=== PATIENT | female | born 1990 | race Caucasian/White ===

== ENCOUNTER 2017-08-07 22:57 | Inpatient (IN) | payer BC ==
[2017-08-07] MEDS ORDERED: Sodium Chloride 0.9% 1,000 ML IV ONE (23:30)
[2017-08-07] MEDS ORDERED: Sodium Chloride 0.9% 1,000 ML ONE (23:36)
[2017-08-07 23:50] LABS: BASO % 0.6 % (0.0-2.0); EOS % 0.6 % (0.0-4.0); HEMOGLOBIN 12.9 g/dL (11.0-16.0); LYMPH # 2.1 K/uL (1.0-4.3); LYMPH % 27.5 % (20.0-40.0); MEAN CELL VOLUME 82.1 fL (81.0-99.0); MEAN CORPUSCULAR HEMOGLOBIN 28.2 pg (27.0-31.0); MEAN CORPUSCULAR HGB CONC 34.3 g/dL (33.0-37.0); MEAN PLATELET VOLUME 8.7 fL (7.2-11.7); MONO # 0.5 K/uL (0.0-0.8); MONO % 7.1 % (0.0-10.0); NEUT # 4.8 K/uL (1.8-7.0); NEUT % 64.2 % (50.0-75.0); RBC 4.57 Mil/uL (3.80-5.20); RED CELL DISTRIBUTION WIDTH 13.2 % (11.5-14.5); WHITE BLOOD COUNT 7.5 K/uL (4.8-10.8)
[2017-08-08] LABS: ALB/GLOB RATIO 1.2 (1.0-2.1); ALT/SGPT 11 U/L (9-52); AST/SGOT 16 U/L (14-36); BLOOD UREA NITROGEN 15 mg/dL (7-17); CALCIUM 8.9 mg/dl (8.6-10.4); GFR AFRICAN-AMERICAN > 60; GFR NON-AFRICAN AMERICAN > 60; LIPASE 102 U/L (23-300)
[2017-08-08 00:18] LABS: SQUAMOUS EPITHIAL 1 /hpf (0-5); URINE BACTERIA RARE (<OCC); URINE BILIRUBIN NEGATIVE (NEGATIVE); URINE BLOOD NEGATIVE (NEGATIVE); URINE CLARITY Clear (Clear); URINE COLOR Straw (YELLOW); URINE GLUCOSE (UA) NORMAL (Normal); URINE LEUKOCYTE ESTERASE NEG Leu/uL (Negative); URINE PROTEIN NEGATIVE (NEGATIVE); URINE UROBILINOGEN NORMAL mg/dL (0.2-1.0)
[2017-08-08 00:27] LABS: HCG,QUALITATIVE URINE NEGATIVE (NEGATIVE)
--- NOTE | 2017-08-08 00:34 | US ---
EXAM: US Abdomen Limited, Right Upper Quadrant CLINICAL HISTORY: 26 years old, female; Pain; Abdominal pain; Epigastric; Additional info: Ruq/epigastric pain TECHNIQUE: Real-time ultrasound of the right upper quadrant with image documentation. COMPARISON: No relevant prior studies available. FINDINGS: Liver: Enlarged, 20.0 cm. Fatty infiltration. No mass. No intrahepatic ductal dilatation. Gallbladder: Nonmobile stone within neck. Comet tail artifact along wall. No wall thickening. No pericholecystic fluid. No sonographic Goldstein's sign. Common bile duct: No dilatation. No stones. Pancreas: Unremarkable as visualized. Right kidney: Normal echogenicity. No hydronephrosis. IMPRESSION: 1. Cholelithiasis. 2. Adenomyomatosis. 3. Incidental/non-acute findings are described above.
--- NOTE | 2017-08-08 00:40 | C.PDOC ---
Time Seen by Provider: 08/07/17 23:13 Chief Complaint (Nursing): Abdominal Pain History Per: Patient Onset/Duration Of Symptoms: Days (5), Waxing/Waning Current Symptoms Are (Timing): Worse Severity: Moderate Location Of Pain/Discomfort: RUQ Quality Of Discomfort: "Pain" Exacerbating Factors: None Alleviating Factors: None Additional History Per: Prior Records Past Medical History Reviewed: Historical Data, Nursing Documentation, Vital Signs Vital Signs: Last Vital Signs Temp 97.6 F 08/07/17 23:11 Pulse 66 08/07/17 23:11 Resp 20 08/07/17 23:11 BP 117/79 08/07/17 23:11 Pulse Ox 100 08/08/17 00:40 - Medical History PMH: No Chronic Diseases Surgical History: Tonsillectomy, Family History: States: Unknown Family Hx - Social History Hx Alcohol Use: Yes Hx Substance Use: No - Immunization History Hx Tetanus Toxoid Vaccination: No Hx Influenza Vaccination: No Hx Pneumococcal Vaccination: No Review Of Systems Except As Marked, All Systems Reviewed And Found Negative. Constitutional: Negative for: Fever Cardiovascular: Negative for: Chest Pain Respiratory: Negative for: Shortness of Breath Gastrointestinal: Positive for: Abdominal Pain. Negative for: Vomiting, Diarrhea Genitourinary: Negative for: Dysuria Musculoskeletal: Negative for: Neck Pain Skin: Negative for: Rash Neurological: Negative for: Weakness, Numbness Physical Exam - Physical Exam Appears: Non-toxic, Other (Uncomfortable in pain) Skin: Normal Color, Warm, Dry, No Rash Head: Atraumatic, Normacephalic Eye(s): bilateral: Normal Inspection, PERRL, EOMI Neck: Normal ROM, Supple Cardiovascular: Rhythm Regular Respiratory: Normal Breath Sounds, No Accessory Muscle Use Gastrointestinal/Abdominal: Soft, Tenderness (RUQ) Back: No CVA Tenderness Extremity: Normal ROM Neurological/Psych: Oriented x3, Normal Motor, Normal Sensation ED Course And Treatment - Laboratory Results Result Diagrams: 08/07/17 23:45 08/07/17 23:45 Lab Interpretation: No Acute Changes Urine POC: Negative O2 Sat by Pulse Oximetry: 100 Pulse Ox Interpretation: Normal - CT Scan/US RUQ Sono Other Rad Studies (CT/US): Read By Radiologist, Radiology Report Reviewed CT/US Interpretation: IMPRESSION: 1. Cholelithiasis. 2. Adenomyomatosis. 3. Incidental/non-acute findings are described above. - Physician Consult Information Physician Contacted: Quinn Gooden (Surg.) Outcome Of Conversation: He wants pt to be admitted under Dr. Rodriguez's service and he will consult. Pt was also signed out to surgery resident Dr. Gunter. Progress - Interventions Interventions:: Observation, Intravenous fluid - Medications Administered Oral: Antiemetic Intravenous: H-2 jennifer - Data Reviewed Data Reviewed: Lab, Diagnostic imaging, Old records - Patient Status Patient status: Unchanged - Continuity of Care Discussed patient case with:: Patient, ED Nurse, On-call PMD-pt unassigned Discussed pt. case with senior wind energy consultant/specialty: General Surgery - Patient Plan Patient Plan: Admission Disposition Discussed With : Breezy Rodriguez Comment: He accepted pt on his service and gave admitting orders to the nurse. Doctor Will See Patient In The: Hospital Counseled Patient/Family Regarding: Studies Performed, Diagnosis - Disposition Disposition: HOSPITALIZED Disposition Time: 00:50 Condition: FAIR - Clinical Impression Clinical Impression: Adenomyomatosis of gallbladder, Cholelithiasis with obstruction, Gallbladder pain
[2017-08-08] MEDS ORDERED: Morphine 4 MG/ML VIAL ONE (01:10)
[2017-08-08] MEDS ORDERED: Dextrose 5%/0.9% NS 1,000 ML IV ONE (01:10)
[2017-08-08] MEDS: Dextrose 5%/0.9% NS 1,000 ML IV SCH ×2 (01:15→10:21)
[2017-08-08] MEDS: Sodium Chloride 0.9% 1,000 ML IV SCH ×3 (02:22→21:16)
--- NOTE | 2017-08-08 07:51 | CP.PCM.CON ---
<Tena Gunter - Last Filed: 08/08/17 07:47> History of Present Illness - History of Present Illness History of Present Illness: General Surgery - Dr Gooden 26yo F w/ hx of 2 years ago, presents with RUQ abdominal pain x5days. Pt states she's had the pain on and off for the past 5 days, worse at night and usually after eating dinner, however yesterday the pain began early in the day and persisted throughout the entire day becoming more severe. She describes it as stabbing pain located in the RUQ and wrapping around the side, non-radiating, 10/10 in severity. She denies any prior episodes of the pain. She admits to some mild nausea but denies any vomiting. She denies any Diarrhea , Constipation, Dysuria, Hematuria, Fevers or Chills, SOB or chest pain. PMH: Depression (stopped anti-depressant meds ~6 weeks ago) PSH: No meds Allergy: Aspirin Vitals and Labs done in ED are WNL. U/S was done which showed a large stone lodged in the neck of the GB with some wall thickening vs. adenomyomatosus. Surgery was consulted for cholecystitis. Review of Systems - Review of Systems All systems: reviewed and no additional remarkable complaints except (as per HPI ) Past Patient History - Past Medical History & Family History Past Medical History?: No - Past Social History Smoking Status: Never Smoked - MUSCULOSKELETAL/RHEUMATOLOGICAL Hx Falls: No - PSYCHIATRIC Hx Substance Use: No - SURGICAL HISTORY Hx Surgeries: Yes Hx Section: Yes Hx Tonsillectomy: Yes (2007) Other/Comment: breast reduction 2008 - ANESTHESIA Hx Anesthesia: Yes Hx Anesthesia Reactions: No Meds Allergies/Adverse Reactions: Allergies Allergy/AdvReac Type Severity Reaction Status Date / Time aspirin AdvReac NAUSEA Verified 08/07/17 23:11 - Medications Medications: Current Medications Famotidine (Pepcid) 20 mg IVP BID [facility] Last Admin: 08/08/17 01:15 Dose: 20 mg Sodium Chloride (Sodium Chloride 0.9%) 1,000 mls @ 100 mls/hr IV .Q10H [facility] Last Admin: 08/08/17 02:22 Dose: 100 mls/hr Dextrose/Sodium Chloride (Dextrose 5%/0.9% Ns 1000 Ml) 1,000 mls @ 100 mls/hr IV .Q10H [facility] Last Admin: 08/08/17 01:15 Dose: 100 mls/hr Ketorolac Tromethamine (Toradol) 30 mg IVP Q4 PRN PRN Reason: Pain, moderate (4-7) Last Admin: 08/08/17 01:39 Dose: 30 mg Pneumococcal Polyvalent Vaccine (Pneumovax 23 Vaccine) 0.5 ml IM .ONCE ONE Stop: 08/10/17 10:01 Physical Exam - Constitutional Appears: No Acute Distress - Head Exam Head Exam: ATRAUMATIC, NORMAL INSPECTION, NORMOCEPHALIC - Eye Exam Eye Exam: Normal appearance - ENT Exam ENT Exam: Mucous Membranes Moist - Respiratory Exam Respiratory Exam: NORMAL BREATHING PATTERN. absent: Respiratory Distress - Cardiovascular Exam Cardiovascular Exam: REGULAR RHYTHM - GI/Abdominal Exam GI & Abdominal Exam: Guarding, Soft, Tenderness (RUQ). absent: Distended, Firm , Rebound, Rigid - Neurological Exam Neurological exam: Alert, Oriented x3 - Psychiatric Exam Psychiatric exam: Normal Affect, Normal Mood - Skin Skin Exam: Dry, Intact Results - Vital Signs Recent Vital Signs: Last Vital Signs Temp 98.6 F 08/08/17 07:40 Pulse 76 08/08/17 07:40 Resp 20 08/08/17 07:40 BP 103/68 08/08/17 07:40 Pulse Ox 97 08/08/17 07:40 - Labs Result Diagrams: 08/07/17 23:45 08/07/17 23:45 Labs: Laboratory Results - last 24 hr 08/07/17 08/07/17 08/08/17 23:45 23:45 00:09 WBC 7.5 RBC 4.57 Hgb 12.9 Hct 37.5 MCV 82.1 MCH 28.2 MCHC 34.3 RDW 13.2 Plt Count 159 MPV 8.7 Neut % (Auto) 64.2 Lymph % (Auto) 27.5 [place] % (Auto) 7.1 Eos % (Auto) 0.6 Baso % (Auto) 0.6 Neut # (Auto) 4.8 Lymph # (Auto) 2.1 [place] # (Auto) 0.5 Eos # (Auto) 0.0 Baso # (Auto) 0.0 Sodium 140 Potassium 3.6 Chloride 103 Carbon Dioxide 26 Anion Gap 15 BUN 15 Creatinine 0.8 Est GFR ( Amer) > 60 Est GFR (Non-Af Amer) > 60 Random Glucose 88 Calcium 8.9 Total Bilirubin 0.5 AST 16 ALT 11 Alkaline Phosphatase 53 Total Protein 7.4 Albumin 4.0 Globulin 3.4 Albumin/Globulin Ratio 1.2 Lipase 102 Urine Color Straw Urine Clarity Clear Urine pH 6.0 Ur Specific [place] 1.013 Urine Protein Negative Urine Glucose (UA) Normal Urine Ketones Negative Urine Blood Negative Urine Nitrate Negative Urine Bilirubin Negative Urine Urobilinogen Normal Ur Leukocyte Esterase Neg Urine WBC (Auto) < 1 Urine RBC (Auto) 1 Ur Squamous Epith Cells 1 Urine Bacteria Rare Urine HCG, Qual Negative Assessment & Plan - Assessment and Plan (Free Text) Assessment: 26 yo F w/ early cholecystitis/cholelithiasis -Plan for OR tomorrow for Robotic Cholecystectomy -Clear liquids today, NPO after midnight tonight -Continue IVF -OOB/Ambulation Dw Dr Giacomo Gunter PGy3 <Quinn Gooden - Last Filed: 08/11/17 15:49> Results - Vital Signs Recent Vital Signs: Last Vital Signs Temp 98.8 F 08/10/17 07:44 Pulse 60 08/10/17 07:44 Resp 20 08/10/17 07:44 BP 106/60 08/10/17 07:44 Pulse Ox 97 08/10/17 07:44 - Labs Result Diagrams: 08/09/17 04:40 08/09/17 04:40 Attending/Attestation - Attestation I have personally seen and examined this patient.: Yes I have fully participated in the care of the patient.: Yes I have reviewed all pertinent clinical information: Yes Notes (Text): Pt was seen and examined at bedside Agree with above note and assessment Pt with Upper abdominal pain and tenderness Labs and radiology reviewed Ass: Cholecystitis with Cholelithiasis and leucocytosis IV antibiotics NPO, IVF OR for lap Cholecystectomy on Wednesday Consent Plan d.w pt in detail Risk and benefit explained in detail.
--- NOTE | 2017-08-08 15:10 | CP.PCM.CON ---
<Aleksandra Fine - Last Filed: 08/08/17 15:15> History of Present Illness - History of Present Illness History of Present Illness: GI Fellow PGY 4 Consult Note This is a 26yF with no significant pmhx presenting with RUQ abdominal pain for 5days. Pt states she's had the pain for the past 5 days, worse at night and after meals but worse yesterday. She describes it as stabbing pain located in the RUQ and wrapping around the side, non-radiating, 10/10 in severity. She denies any prior episodes of the pain. She admits to some mild nausea but denies any vomiting. U/S was done which showed a large stone lodged in the neck of the GB with some wall thickening. ROS: A 12pt ROS was negative except as above PMH: As stated in HPI PSH: SHX: Denies etoh, drugs or tobacco FH: denies colon cancer Past Patient History - Past Medical History & Family History Past Medical History?: No - Past Social History Smoking Status: Never Smoked - MUSCULOSKELETAL/RHEUMATOLOGICAL Hx Falls: No - PSYCHIATRIC Hx Substance Use: No - SURGICAL HISTORY Hx Surgeries: Yes Hx Section: Yes Hx Tonsillectomy: Yes (2007) Other/Comment: breast reduction 2008 - ANESTHESIA Hx Anesthesia: Yes Hx Anesthesia Reactions: No Meds Allergies/Adverse Reactions: Allergies Allergy/AdvReac Type Severity Reaction Status Date / Time aspirin AdvReac NAUSEA Verified 08/07/17 23:11 - Medications Medications: Current Medications Famotidine (Pepcid) 20 mg IVP BID [facility] Last Admin: 08/08/17 10:23 Dose: 20 mg Sodium Chloride (Sodium Chloride 0.9%) 1,000 mls @ 100 mls/hr IV .Q10H [facility] Last Admin: 08/08/17 10:23 Dose: 100 mls/hr Ketorolac Tromethamine (Toradol) 30 mg IVP Q4 PRN PRN Reason: Pain, moderate (4-7) Last Admin: 08/08/17 01:39 Dose: 30 mg Pneumococcal Polyvalent Vaccine (Pneumovax 23 Vaccine) 0.5 ml IM .ONCE ONE Stop: 08/10/17 10:01 Physical Exam - Constitutional Appears: Non-toxic, No Acute Distress - Head Exam Head Exam: ATRAUMATIC, NORMAL INSPECTION, NORMOCEPHALIC - Eye Exam Eye Exam: EOMI, Normal appearance Pupil Exam: PERRL - ENT Exam ENT Exam: Mucous Membranes Moist, Normal Exam - Neck Exam Neck exam: Positive for: Normal Inspection - Respiratory Exam Respiratory Exam: Clear to Auscultation Bilateral, NORMAL BREATHING PATTERN - Cardiovascular Exam Cardiovascular Exam: Tachycardia, REGULAR RHYTHM, +S1, +S2 - GI/Abdominal Exam GI & Abdominal Exam: Diminished Bowel Sounds, Normal Bowel Sounds, Soft, Tenderness. absent: Distended, Firm, Guarding - Rectal Exam Rectal Exam: Deferred - Extremities Exam Extremities exam: Positive for: full ROM, normal inspection - Back Exam Back exam: NORMAL INSPECTION - Neurological Exam Neurological exam: Alert, Oriented x3 - Psychiatric Exam Psychiatric exam: Normal Affect, Normal Mood - Skin Skin Exam: Dry, Intact, Normal Color, Warm Results - Vital Signs Recent Vital Signs: Last Vital Signs Temp 98.6 F 08/08/17 07:40 Pulse 76 08/08/17 07:40 Resp 20 08/08/17 07:40 BP 103/68 08/08/17 07:40 Pulse Ox 97 08/08/17 07:40 - Labs Result Diagrams: 08/07/17 23:45 08/07/17 23:45 Labs: Laboratory Results - last 24 hr 08/07/17 08/07/17 08/08/17 23:45 23:45 00:09 WBC 7.5 RBC 4.57 Hgb 12.9 Hct 37.5 MCV 82.1 MCH 28.2 MCHC 34.3 RDW 13.2 Plt Count 159 MPV 8.7 Neut % (Auto) 64.2 Lymph % (Auto) 27.5 [place] % (Auto) 7.1 Eos % (Auto) 0.6 Baso % (Auto) 0.6 Neut # (Auto) 4.8 Lymph # (Auto) 2.1 [place] # (Auto) 0.5 Eos # (Auto) 0.0 Baso # (Auto) 0.0 Sodium 140 Potassium 3.6 Chloride 103 Carbon Dioxide 26 Anion Gap 15 BUN 15 Creatinine 0.8 Est GFR ( Amer) > 60 Est GFR (Non-Af Amer) > 60 Random Glucose 88 Calcium 8.9 Total Bilirubin 0.5 AST 16 ALT 11 Alkaline Phosphatase 53 Total Protein 7.4 Albumin 4.0 Globulin 3.4 Albumin/Globulin Ratio 1.2 Lipase 102 Urine Color Straw Urine Clarity Clear Urine pH 6.0 Ur Specific [place] 1.013 Urine Protein Negative Urine Glucose (UA) Normal Urine Ketones Negative Urine Blood Negative Urine Nitrate Negative Urine Bilirubin Negative Urine Urobilinogen Normal Ur Leukocyte Esterase Neg Urine WBC (Auto) < 1 Urine RBC (Auto) 1 Ur Squamous Epith Cells 1 Urine Bacteria Rare Urine HCG, Qual Negative Assessment & Plan - Assessment and Plan (Free Text) Assessment: This is a 26yM presenting with abdominal pain. 1. Acute cholelithiasis/ cholecystitis Plan: -Continue supportive care with pain control and anti-emetics -NPO after midnight -Continue abx therapy -No GI intervention at this time, no CBD stone, LFTs wnl -Plan for OR tomorrow -Please call with any questions or concerns <Anshul Martinez - Last Filed: 08/08/17 15:32> Meds - Medications Medications: Current Medications Famotidine (Pepcid) 20 mg IVP BID [facility] Last Admin: 08/08/17 10:23 Dose: 20 mg Sodium Chloride (Sodium Chloride 0.9%) 1,000 mls @ 100 mls/hr IV .Q10H [facility] Last Admin: 08/08/17 10:23 Dose: 100 mls/hr Ketorolac Tromethamine (Toradol) 30 mg IVP Q4 PRN PRN Reason: Pain, moderate (4-7) Last Admin: 08/08/17 01:39 Dose: 30 mg Pneumococcal Polyvalent Vaccine (Pneumovax 23 Vaccine) 0.5 ml IM .ONCE ONE Stop: 08/10/17 10:01 Results - Vital Signs Recent Vital Signs: Last Vital Signs Temp 98.6 F 08/08/17 07:40 Pulse 76 08/08/17 07:40 Resp 20 08/08/17 07:40 BP 103/68 08/08/17 07:40 Pulse Ox 97 08/08/17 07:40 - Labs Result Diagrams: 08/07/17 23:45 08/07/17 23:45 Labs: Laboratory Results - last 24 hr 08/07/17 08/07/17 08/08/17 23:45 23:45 00:09 WBC 7.5 RBC 4.57 Hgb 12.9 Hct 37.5 MCV 82.1 MCH 28.2 MCHC 34.3 RDW 13.2 Plt Count 159 MPV 8.7 Neut % (Auto) 64.2 Lymph % (Auto) 27.5 [place] % (Auto) 7.1 Eos % (Auto) 0.6 Baso % (Auto) 0.6 Neut # (Auto) 4.8 Lymph # (Auto) 2.1 [place] # (Auto) 0.5 Eos # (Auto) 0.0 Baso # (Auto) 0.0 Sodium 140 Potassium 3.6 Chloride 103 Carbon Dioxide 26 Anion Gap 15 BUN 15 Creatinine 0.8 Est GFR ( Amer) > 60 Est GFR (Non-Af Amer) > 60 Random Glucose 88 Calcium 8.9 Total Bilirubin 0.5 AST 16 ALT 11 Alkaline Phosphatase 53 Total Protein 7.4 Albumin 4.0 Globulin 3.4 Albumin/Globulin Ratio 1.2 Lipase 102 Urine Color Straw Urine Clarity Clear Urine pH 6.0 Ur Specific [place] 1.013 Urine Protein Negative Urine Glucose (UA) Normal Urine Ketones Negative Urine Blood Negative Urine Nitrate Negative Urine Bilirubin Negative Urine Urobilinogen Normal Ur Leukocyte Esterase Neg Urine WBC (Auto) < 1 Urine RBC (Auto) 1 Ur Squamous Epith Cells 1 Urine Bacteria Rare Urine HCG, Qual Negative Attending/Attestation - Attestation I have personally seen and examined this patient.: Yes I have fully participated in the care of the patient.: Yes I have reviewed all pertinent clinical information: Yes Notes (Text): 08/08/17 15:26 This is a 26 year old M presenting with abdominal pain in setting of acute cholelithiasis/ cholecystitis for OR in am. No choledocholithiasis hence no GI intervention needed. Rest of plan as per surgical service. Please call with any questions or concerns
--- NOTE | 2017-08-08 19:14 | RAD ---
PROCEDURE: CHEST RADIOGRAPH, 1 VIEW HISTORY: preop COMPARISON: None available. FINDINGS: LUNGS: Clear. PLEURA: No pneumothorax or pleural fluid seen. CARDIOVASCULAR: Normal. OSSEOUS STRUCTURES: No significant abnormalities. VISUALIZED UPPER ABDOMEN: Normal. OTHER FINDINGS: None. IMPRESSION: No active disease.
--- NOTE | 2017-08-08 22:21 | CP.PCM.HP ---
History of Present Illness - History of Present Illness History of Present Illness: CC: RUQ abdominal pain HPI: This is a 26yF with no significant pmhx presenting with RUQ abdominal pain for 5days. Pt states she's had the pain for the past 5 days, worse at night and after meals but worse yesterday. She describes it as stabbing pain located in the RUQ and wrapping around the side, radiating to back, 10/10 in severity. She denies any prior episodes of the pain. She admits to some mild nausea but denies any vomiting. U/S was done which showed a large stone lodged in the neck of the GB with some wall thickening. ROS: A 12pt ROS was negative except as above PMH: As stated in HPI PSH: SHX: Denies etoh, drugs or tobacco FH: denies colon cancer Present on Admission - Present on Admission Any Indicators Present on Admission: Yes Review of Systems - Review of Systems Systems not reviewed;Unavailable: Acuity of Condition - Constitutional Constitutional: Fatigue. absent: As Per HPI, Anorexia, Chills, Daytime Sleepiness, Excessive Sweating, Fever, Frequent Falls, Headache, Increased Appetite, Lethargy, Malaise, Night Sweats, Snoring, Sleep Apnea, Weight Gain, Weight Loss, Weakness, Other - EENT Eyes: absent: As Per HPI, Blind Spots, Blurred Vision, Change in Vision, Decreased Night Vision, Diplopia, Discharge, Dry Eye, Exophthalmos, Floaters, Irritation, Itchy Eyes, Loss of Peripheral Vision, Pain, Photophobia, Requires Corrective Lenses, Sees Flashes, Spots in Vision, Tunnel Vision, Other Visual Disturbances, Loss of Vision, Other Nose/Mouth/Throat: absent: As Per HPI, Epistaxis, Nasal Congestion, Nasal Discharge, Nasal Obstruction, Nasal Trauma, Nose Pain, Post Nasal Drip, Sinus Pain, Sinus Pressure, Bleeding Gums, Change in Voice, Dental Pain, Dry Mouth, Dysphagia, Halitosis, Hoarsness, Lip Swelling, Mouth Lesions, Mouth Pain, Odynophagia, Sore Throat, Throat Swelling, Tongue Swelling, Facial Pain, Neck Pain, Neck Mass, Other - Cardiovascular Cardiovascular: absent: As Per HPI, Acrocyanosis, Chest Pain, Chest Pain at Rest , Chest Pain with Activity, Claudication, Diaphoresis, Dyspnea, Dyspnea on Exertion, Edema, Irregular Heart Rhythm, Pain Radiating to Arm/Neck/Jaw, Leg Edema, Leg Ulcers, Lightheadedness, Orthopnea, Palpitations, Paroxysmal Nocturnal Dyspnea, Pedal Edema, Radiating Pain, Rapid Heart Rate, Slow Heart Rate, Syncope, Other - Gastrointestinal Gastrointestinal: Abdominal Pain, Dyspepsia, Nausea - Genitourinary Genitourinary: absent: As Per HPI, Change in Urinary Stream, Difficulty Urinating, Dysuria, Flank Pain, Hematuria, Pyuria, Nocturia, Urinary Incontinence, Urinary Frequency, Urinary Hesitance, Urinary Urgency, Voiding Freq/Small Amts, Freq UTI, Hx Renal/Bladder Calculi, Hx /Renal Surgery, Bladder Distension, Other - Musculoskeletal Musculoskeletal: Back Pain. absent: As Per HPI, Abnormal Gait, Arthralgias, Atrophy, Deformity, Joint Swelling, Limited Range of Motion, Loss of Height, Muscle Cramps, Muscle Weakness, Myalgias, Neck Pain, Numbness, Radiating Pain into Limb, Stiffness, Tingling, Other - Integumentary Integumentary: absent: As Per HPI, Acne, Alopecia, Bleeding Lesions, Change in Hair, Change in Nails, Change in Pigmentation, Changing Lesions, Dry Skin, Erythema, Furuncle, Hirsutism, Lesions, New Lesions, Non-Healing Lesions, Photosensitivity, Pruritus, Rash, Skin Pain, Skin Ulcer, Sores, Striae, Swelling , Unusual Bruising, Wounds, Jaundice, Other Past Patient History - Past Medical History & Family History Past Medical History?: No - Past Social History Smoking Status: Never Smoked - MUSCULOSKELETAL/RHEUMATOLOGICAL Hx Falls: No - PSYCHIATRIC Hx Substance Use: No - SURGICAL HISTORY Hx Surgeries: Yes Hx Section: Yes Hx Tonsillectomy: Yes (2007) Other/Comment: breast reduction 2009 - ANESTHESIA Hx Anesthesia: Yes Hx Anesthesia Reactions: No Meds Allergies/Adverse Reactions: Allergies Allergy/AdvReac Type Severity Reaction Status Date / Time aspirin AdvReac NAUSEA Verified 08/07/17 23:11 Physical Exam - Constitutional Appears: No Acute Distress - Head Exam Head Exam: ATRAUMATIC, NORMAL INSPECTION, NORMOCEPHALIC - Eye Exam Eye Exam: EOMI, Normal appearance, PERRL Pupil Exam: NORMAL ACCOMODATION, PERRL - Respiratory Exam Respiratory Exam: Clear to Auscultation Bilateral, NORMAL BREATHING PATTERN - Cardiovascular Exam Cardiovascular Exam: REGULAR RHYTHM, +S1, +S2 - GI/Abdominal Exam GI & Abdominal Exam: Normal Bowel Sounds, Tenderness. absent: Bruit, Diminished Bowel Sounds, Distended, Firm, Guarding, Hernia, Hyperactive Bowel Sounds, Hypoactive Bowel Sounds, Mass, Organomegaly, Pulsatile Mass, Rebound, Rigid, Soft Additional comments: RUQ tenderness - Rectal Exam Rectal Exam: Deferred Results - Vital Signs Recent Vital Signs: Last Vital Signs Temp 98.3 F 08/08/17 15:00 Pulse 61 08/08/17 15:00 Resp 20 08/08/17 15:00 BP 100/63 08/08/17 15:00 Pulse Ox 98 08/08/17 15:00 - Labs Result Diagrams: 08/07/17 23:45 08/07/17 23:45 Labs: Laboratory Results - last 24 hr 08/07/17 08/07/17 08/08/17 23:45 23:45 00:09 WBC 7.5 RBC 4.57 Hgb 12.9 Hct 37.5 MCV 82.1 MCH 28.2 MCHC 34.3 RDW 13.2 Plt Count 159 MPV 8.7 Neut % (Auto) 64.2 Lymph % (Auto) 27.5 [place] % (Auto) 7.1 Eos % (Auto) 0.6 Baso % (Auto) 0.6 Neut # (Auto) 4.8 Lymph # (Auto) 2.1 [place] # (Auto) 0.5 Eos # (Auto) 0.0 Baso # (Auto) 0.0 Sodium 140 Potassium 3.6 Chloride 103 Carbon Dioxide 26 Anion Gap 15 BUN 15 Creatinine 0.8 Est GFR ( Amer) > 60 Est GFR (Non-Af Amer) > 60 Random Glucose 88 Calcium 8.9 Total Bilirubin 0.5 AST 16 ALT 11 Alkaline Phosphatase 53 Total Protein 7.4 Albumin 4.0 Globulin 3.4 Albumin/Globulin Ratio 1.2 Lipase 102 Urine Color Straw Urine Clarity Clear Urine pH 6.0 Ur Specific [place] 1.013 Urine Protein Negative Urine Glucose (UA) Normal Urine Ketones Negative Urine Blood Negative Urine Nitrate Negative Urine Bilirubin Negative Urine Urobilinogen Normal Ur Leukocyte Esterase Neg Urine WBC (Auto) < 1 Urine RBC (Auto) 1 Ur Squamous Epith Cells 1 Urine Bacteria Rare Urine HCG, Qual Negative Assessment & Plan (1) RUQ abdominal pain Status: Acute (2) Cholelithiasis with obstruction Status: Acute
[2017-08-09] MEDS: Sodium Chloride 0.9% 1,000 ML IV SCH ×2 (00:11→10:50)
[2017-08-09 04:46] LABS: BASO % 0.5 % (0.0-2.0); EOS # 0.1 K/uL (0.0-0.7); EOS % 0.9 % (0.0-4.0); HEMOGLOBIN 11.8 g/dL (11.0-16.0); LYMPH # 2.3 K/uL (1.0-4.3); MEAN CELL VOLUME 82.4 fL (81.0-99.0); MEAN CORPUSCULAR HEMOGLOBIN 28.1 pg (27.0-31.0); MEAN CORPUSCULAR HGB CONC 34.1 g/dL (33.0-37.0); MEAN PLATELET VOLUME 8.8 fL (7.2-11.7); MONO # 0.4 K/uL (0.0-0.8); MONO % 6.4 % (0.0-10.0); NEUT # 3.8 K/uL (1.8-7.0); NEUT % 57.2 % (50.0-75.0); RBC 4.2 Mil/uL (3.80-5.20); RED CELL DISTRIBUTION WIDTH 13.1 % (11.5-14.5); WHITE BLOOD COUNT 6.6 K/uL (4.8-10.8)
[2017-08-09 04:54] LABS: INR 1.3
[2017-08-09 05:01] LABS: ALB/GLOB RATIO 1.1 (1.0-2.1); ALBUMIN 3.1 g/dL (3.5-5.0); ALT/SGPT 14 U/L (9-52); AST/SGOT 17 U/L (14-36); BLOOD UREA NITROGEN 5 mg/dL (7-17); CALCIUM 7.7 mg/dl (8.6-10.4); GFR AFRICAN-AMERICAN > 60; GFR NON-AFRICAN AMERICAN > 60
[2017-08-09] MEDS: Bupivacaine HCl 0.25% PF (30 ml) Inj ONE ×2 (13:03→13:33)
[2017-08-09] MEDS: Lidocaine/Epinephrine 1% 1:100000 10 ML IJ ONE ×2 (13:04→13:33)
[2017-08-09] MEDS: ceFAZolin 1 gm in NS 2 GM/200 ML BAG IVPB ONE ×2 (13:04→13:20)
[2017-08-09] MEDS ORDERED: Propofol 10 mg/ml Inj (20 ML) ONE (13:06)
[2017-08-09] MEDS ORDERED: Midazolam 2 MG/2 ML VIAL ONE (13:06)
[2017-08-09] MEDS ORDERED: HYDROmorphone 0.5 mg/0.5 ml ISec IVP PRN (14:22)
--- NOTE | 2017-08-09 14:52 | PCM.SURG1 ---
Surgeon's Initial Post Op Note - Surgeon's Notes Surgeon: Dr. Gooden [employer] Cle[employer] Porter: LIDIA Seth; Meaghan Lindsey, PGY2 Pre-Operative Diagnosis: Acute cholecystitis, cholelithiasis Operative Findings: distended gallbladder, normal ductal and arterial anatomy, hemostasis obtained Post-Operative Diagnosis: same Operation Performed: robotic assisted laparoscopic cholecystectomy Specimen/Specimens Removed: gall bladder Estimated Blood Loss: EBL {In ML}: 10 Date of Surgery/Procedure: 08/09/17 Time of Surgery/Procedure: 13:30
[2017-08-09 16:50] VITALS: RESP 20
[2017-08-09] MEDS: Oxycodone/Acetaminophen 5/325 mg Tab PO PRN (17:21)
[2017-08-09] MEDS: Docusate-Senna 50 mg-8.6 mg Tab PO SCH (18:30)
[2017-08-09 23:26] VITALS: PULSE 60
--- NOTE | 2017-08-09 23:40 | CP.PCM.PN ---
Subjective - Date & Time of Evaluation Date of Evaluation: 08/09/17 Time of Evaluation: 18:45 - Subjective Subjective: Pt is seen and examined, s/p robotic cholecystectomy, has some pain, post op care, diet Objective - Vital Signs/Intake and Output Vital Signs (last 24 hours): Temp Pulse Resp BP Pulse Ox 98 F 60 20 100/63 98 08/09/17 23:22 08/09/17 23:22 08/09/17 23:22 08/09/17 23:22 08/09/17 23:22 Intake and Output: 08/09/17 08/10/17 18:59 06:59 Intake Total 1500 480 Balance 1500 480 - Medications Medications: Current Medications Enoxaparin Sodium (Lovenox) 40 mg SC DAILY [facility] Famotidine (Pepcid) 20 mg IVP BID [facility] Last Admin: 08/09/17 17:22 Dose: 20 mg Ondansetron HCl (Zofran Inj) 4 mg IVP Q6H PRN PRN Reason: Nausea/Vomiting Oxycodone/Acetaminophen (Percocet 5/325 Mg Tab) 1 tab PO Q6H PRN PRN Reason: Pain, moderate (4-7) Stop: 08/12/17 14:54 Last Admin: 08/09/17 17:21 Dose: 1 tab Pneumococcal Polyvalent Vaccine (Pneumovax 23 Vaccine) 0.5 ml IM .ONCE ONE Stop: 08/10/17 10:01 Senna/Docusate Sodium (Senokot S 50 Mg-8.6 Mg) 1 tab PO BID [facility] Last Admin: 08/09/17 18:30 Dose: 1 tab - Labs Labs: 08/09/17 04:40 08/09/17 04:40 PT 15.0 SECONDS (9.7-12.2) H 08/09/17 04:40 INR 1.3 08/09/17 04:40 APTT 29 SECONDS (21-34) 08/09/17 04:40 - Constitutional Appears: No Acute Distress - Head Exam Head Exam: ATRAUMATIC, NORMAL INSPECTION, NORMOCEPHALIC - Eye Exam Eye Exam: EOMI, Normal appearance, PERRL Pupil Exam: NORMAL ACCOMODATION, PERRL - Respiratory Exam Respiratory Exam: Clear to Ausculation Bilateral, NORMAL BREATHING PATTERN - Cardiovascular Exam Cardiovascular Exam: REGULAR RHYTHM, +S1, +S2. absent: Murmur - GI/Abdominal Exam GI & Abdominal Exam: Soft, Normal Bowel Sounds. absent: Tenderness Assessment and Plan (1) RUQ abdominal pain Status: Acute (2) Cholelithiasis with obstruction Assessment & Plan: s/p cholecystectomy on post op care Status: Acute
[2017-08-10] MEDS: Oxycodone/Acetaminophen 5/325 mg Tab PO PRN ×2 (00:07→10:41)
--- NOTE | 2017-08-10 02:12 | CARD ---
APPROVED REPORT EKG Measurement Heart [id number] <Conclusion> Normal sinus rhythm Cannot rule out Anterior infarct, age undetermined Abnormal ECG
--- NOTE | 2017-08-10 02:36 | OP ---
PROCEDURE DATE: 08/09/2017 PREOPERATIVE DIAGNOSIS: Acute cholecystitis and cholelithiasis. POSTOPERATIVE DIAGNOSIS: Acute cholecystitis and cholelithiasis. PROCEDURE DONE: Robotic cholecystectomy. SURGEON: Quinn Gooden MD SCREEN PRINTING STENCIL PREPARER: DILLON Tavarez; and Meaghan Lindsey, PGY-2 resident. TYPE OF ANESTHESIA: General endotracheal tube anesthesia. ESTIMATED BLOOD LOSS: Around 10 mL. DRAINS: None. PATHOLOGY: Gallbladder with gallstone was sent for the pathology. COMPLICATIONS: None. INTRAOPERATIVE FINDINGS: The patient had changes of acute cholecystitis and cholelithiasis. DESCRIPTION OF PROCEDURE: On intraoperative steps, this is a 26-year-old female who was diagnosed with cholelithiasis and possible acute cholecystitis. The patient was consented for laparoscopic-assisted robotic cholecystectomy and possible open, brought to the OR, placed supine on the operating table. After induction of the anesthesia, abdomen was prepped and draped in the usual sterile fashion. The supraumbilical transverse incision was made after incising the skin, subcutaneous tissue, and the fascia. The robotic camera port was placed. Pneumo was created. Another 3.8 mm port was placed, pneumo was created. The 3.8 mm port was placed. Robot was brought in. Camera arm as well as arm 1 and arm 2 was docked and gallbladder was retracted cranially. Calot's triangle dissection was done. Cystic duct and cystic artery was identified and clipped at 3 places and cut in between 2 clips nearby gallbladder, and the gallbladder was dissected free from the gallbladder fossa. Intraoperative Firefly was used to identify the ductal anatomy, and after proper hemostasis, the gallbladder was dissected free from gallbladder fossa, taken in an Endocatch bag, taken out through the umbilical port site and sent off the table for the pathology, and the suction irrigation of the gallbladder fossa as well as perihepatic area was done, and after proper hemostasis, all the ports were taken out under vision, after undocking the robot, and umbilical port site was closed in 2 layers, fascia with a 0 Vicryl interrupted suture, skin with a 4-0 Monocryl, and dry sterile dressing was applied. The patient tolerated the procedure well. Count of the instrument and gauze was correct. There were no apparent complications. The patient was extubated in the OR, sent to the postanesthesia care unit in stable condition. Quinn Gooden MD [facility] # [id number]
[2017-08-10 07:49] VITALS: BP 106/60; TEMP 98.8; O2SAT 97
[2017-08-10] MEDS ORDERED: Enoxaparin 40 mg Syringe SC SCH (10:00)
[2017-08-10] MEDS ORDERED: Pneumococcal 23-Valent Vaccine IM ONE (10:00)
--- NOTE | 2017-08-10 10:05 | CP.PCM.PN ---
<Meaghan Lindsey - Last Filed: 08/10/17 10:02> Subjective - Date & Time of Evaluation Date of Evaluation: 08/10/17 Time of Evaluation: 07:00 - Subjective Subjective: Patient seen and examined at bedside. patient reports some nausea with the PO pain medication. Encouraged patient to take the pain medication with food to prevent nausea. Pain well controlled. No vomiting, chest pain, or fevers. Patient urinating and ambulating well Objective - Vital Signs/Intake and Output Vital Signs (last 24 hours): Temp Pulse Resp BP Pulse Ox 98.8 F 60 20 106/60 97 08/10/17 07:44 08/10/17 07:44 08/10/17 07:44 08/10/17 07:44 08/10/17 07:44 Intake and Output: 08/10/17 08/10/17 06:59 18:59 Intake Total 1480 Balance 1480 - Medications Medications: Current Medications Enoxaparin Sodium (Lovenox) 40 mg SC DAILY [facility] Famotidine (Pepcid) 20 mg IVP BID [facility] Last Admin: 08/09/17 17:22 Dose: 20 mg Ondansetron HCl (Zofran Inj) 4 mg IVP Q6H PRN PRN Reason: Nausea/Vomiting Last Admin: 08/10/17 00:13 Dose: 4 mg Oxycodone/Acetaminophen (Percocet 5/325 Mg Tab) 1 tab PO Q6H PRN PRN Reason: Pain, moderate (4-7) Stop: 08/12/17 14:54 Last Admin: 08/10/17 00:07 Dose: 1 tab Pneumococcal Polyvalent Vaccine (Pneumovax 23 Vaccine) 0.5 ml IM .ONCE ONE Stop: 08/10/17 10:01 Senna/Docusate Sodium (Senokot S 50 Mg-8.6 Mg) 1 tab PO BID [facility] Last Admin: 08/09/17 18:30 Dose: 1 tab - Labs Labs: 08/09/17 04:40 08/09/17 04:40 PT 15.0 SECONDS (9.7-12.2) H 08/09/17 04:40 INR 1.3 08/09/17 04:40 APTT 29 SECONDS (21-34) 08/09/17 04:40 - Constitutional Appears: Well, Non-toxic, No Acute Distress - Head Exam Head Exam: ATRAUMATIC, NORMOCEPHALIC - Eye Exam Eye Exam: Normal appearance. absent: Conjunctival injection, Scleral icterus - ENT Exam ENT Exam: Mucous Membranes Moist, Normal Oropharynx - Respiratory Exam Respiratory Exam: NORMAL BREATHING PATTERN. absent: Accessory Muscle Use, Respiratory Distress - Cardiovascular Exam Cardiovascular Exam: RRR - GI/Abdominal Exam GI & Abdominal Exam: Soft, Tenderness (LUQ). absent: Distended Additional comments: dressings clean, dry, intact. No erythema or swelling - Neurological Exam Neurological Exam: Alert, Awake, Oriented x3 - Psychiatric Exam Psychiatric exam: Normal Affect, Normal Mood - Skin Skin Exam: Dry, Intact, Normal Color, Warm Assessment and Plan - Assessment and Plan (Free Text) Assessment: 26F POD#1 s/p robotic cholecystectomy Plan: -Patient is clear for discharge from a surgical standpoint -Follow up with Dr. Gooden in his office in 10-14 days -Scripts for PO pain medication, levaquin, and stool softeners in the chart-- patient should take and instructed -No heavy lifting for 4-6 weeks. Bandaids should stay on until and the steristrips will remain until they fall off. Patient may shower if she keeps the dressings dry. No soaking. Patient seen and discussed with Dr. Giacomo Lindsey. PGY2 <Quinn Gooden - Last Filed: 08/11/17 15:56> Objective - Vital Signs/Intake and Output Vital Signs (last 24 hours): Temp Pulse Resp BP Pulse Ox 98.8 F 60 20 106/60 97 08/10/17 07:44 08/10/17 07:44 08/10/17 07:44 08/10/17 07:44 08/10/17 07:44 - Labs Labs: 08/09/17 04:40 08/09/17 04:40 PT 15.0 SECONDS (9.7-12.2) H 08/09/17 04:40 INR 1.3 08/09/17 04:40 APTT 29 SECONDS (21-34) 08/09/17 04:40 Attending/Attestation - Attestation I have personally seen and examined this patient.: Yes I have fully participated in the care of the patient.: Yes I have reviewed all pertinent clinical information, including history, physical exam and plan: Yes Notes (Text): Pt was seen and examined at bedside Agree with above note and assessment Pt is improved clinically Can be DC home f.u as out pt Po levaquin for 5 days Plan d.w pt in detail Risk and benefit explained in detail.
[2017-08-10] MEDS: Docusate-Senna 50 mg-8.6 mg Tab PO SCH (10:41)
--- NOTE | 2017-08-10 16:24 | CP.PCM.PN ---
Subjective - Date & Time of Evaluation Date of Evaluation: 08/10/17 Time of Evaluation: 11:00 - Subjective Subjective: Alert, oriented, ambulatory. voiding well, NAD. Objective - Vital Signs/Intake and Output Vital Signs (last 24 hours): Temp Pulse Resp BP Pulse Ox 98.8 F 60 20 106/60 97 08/10/17 07:44 08/10/17 07:44 08/10/17 07:44 08/10/17 07:44 08/10/17 07:44 Intake and Output: 08/10/17 08/10/17 06:59 18:59 Intake Total 1480 Balance 1480 - Labs Labs: 08/09/17 04:40 08/09/17 04:40 PT 15.0 SECONDS (9.7-12.2) H 08/09/17 04:40 INR 1.3 08/09/17 04:40 APTT 29 SECONDS (21-34) 08/09/17 04:40 Assessment and Plan - Assessment and Plan (Free Text) Assessment: 26 year old female, post robotic cholecystectomy, seen and examined. Denies acute pain or vomiting. cleared by the surgical team for discharge home today. Discussed with DR Rodriguez , discharge plan for today, advised to follow up in the office in 1 week.
--- NOTE | 2017-08-10 23:16 | CP.PCM.DIS ---
Provider - Provider Date of Admission: 08/08/17 00:53 Attending physician: Breezy Rodriguez MD Diagnosis - Discharge Diagnosis (1) RUQ abdominal pain Status: Acute (2) Cholelithiasis with obstruction Status: Acute Hospital Course - Lab Results Lab Results: Most Recent Lab Values WBC 6.6 K/uL (4.8-10.8) 08/09/17 04:40 RBC 4.20 Mil/uL (3.80-5.20) 08/09/17 04:40 Hgb 11.8 g/dL (11.0-16.0) 08/09/17 04:40 Hct 34.6 % (34.0-47.0) 08/09/17 04:40 MCV 82.4 fL (81.0-99.0) 08/09/17 04:40 MCH 28.1 pg (27.0-31.0) 08/09/17 04:40 MCHC 34.1 g/dL (33.0-37.0) 08/09/17 04:40 RDW 13.1 % (11.5-14.5) 08/09/17 04:40 Plt Count 147 K/uL (130-400) 08/09/17 04:40 MPV 8.8 fL (7.2-11.7) 08/09/17 04:40 Neut % (Auto) 57.2 % (50.0-75.0) 08/09/17 04:40 Lymph % (Auto) 35.0 % (20.0-40.0) 08/09/17 04:40 [place] % (Auto) 6.4 % (0.0-10.0) 08/09/17 04:40 Eos % (Auto) 0.9 % (0.0-4.0) 08/09/17 04:40 Baso % (Auto) 0.5 % (0.0-2.0) 08/09/17 04:40 Neut # (Auto) 3.8 K/uL (1.8-7.0) 08/09/17 04:40 Lymph # (Auto) 2.3 K/uL (1.0-4.3) 08/09/17 04:40 [place] # (Auto) 0.4 K/uL (0.0-0.8) 08/09/17 04:40 Eos # (Auto) 0.1 K/uL (0.0-0.7) 08/09/17 04:40 Baso # (Auto) 0.0 K/uL (0.0-0.2) 08/09/17 04:40 PT 15.0 SECONDS (9.7-12.2) H 08/09/17 04:40 INR 1.3 08/09/17 04:40 APTT 29 SECONDS (21-34) 08/09/17 04:40 Sodium 140 mmol/L (132-148) 08/09/17 04:40 Potassium 4.0 mmol/L (3.6-5.2) 08/09/17 04:40 Chloride 107 mmol/L (98-107) 08/09/17 04:40 Carbon Dioxide 22 mmol/L (22-30) 08/09/17 04:40 Anion Gap 14 (10-20) 08/09/17 04:40 BUN 5 mg/dL (7-17) L 08/09/17 04:40 Creatinine 0.6 mg/dL (0.7-1.2) L 08/09/17 04:40 Est GFR ( Amer) > 60 08/09/17 04:40 Est GFR (Non-Af Amer) > 60 08/09/17 04:40 Random Glucose 72 mg/dL (65-105) 08/09/17 04:40 Calcium 7.7 mg/dl (8.6-10.4) L 08/09/17 04:40 Total Bilirubin 1.2 mg/dL (0.2-1.3) 08/09/17 04:40 AST 17 U/L (14-36) 08/09/17 04:40 ALT 14 U/L (9-52) 08/09/17 04:40 Alkaline Phosphatase 33 U/L (38-126) L D 08/09/17 04:40 Total Protein 5.8 g/dL (6.3-8.3) L 08/09/17 04:40 Albumin 3.1 g/dL (3.5-5.0) L D 08/09/17 04:40 Globulin 2.7 gm/dL (2.2-3.9) 08/09/17 04:40 Albumin/Globulin Ratio 1.1 (1.0-2.1) 08/09/17 04:40 Lipase 102 U/L (23-300) 08/07/17 23:45 Urine Color Straw (YELLOW) 08/08/17 00:09 Urine Clarity Clear (Clear) 08/08/17 00:09 Urine pH 6.0 (5.0-8.0) 08/08/17 00:09 Ur Specific [place] 1.013 (1.003-1.030) 08/08/17 00:09 Urine Protein Negative mg/dL (NEGATIVE) 08/08/17 00:09 Urine Glucose (UA) Normal mg/dL (Normal) 08/08/17 00:09 Urine Ketones Negative mg/dL (NEGATIVE) 08/08/17 00:09 Urine Blood Negative (NEGATIVE) 08/08/17 00:09 Urine Nitrate Negative (NEGATIVE) 08/08/17 00:09 Urine Bilirubin Negative (NEGATIVE) 08/08/17 00:09 Urine Urobilinogen Normal mg/dL (0.2-1.0) 08/08/17 00:09 Ur Leukocyte Esterase Neg [place]/uL (Negative) 08/08/17 00:09 Urine WBC (Auto) < 1 /hpf (0-5) 08/08/17 00:09 Urine RBC (Auto) 1 /hpf (0-3) 08/08/17 00:09 Ur Squamous Epith Cells 1 /hpf (0-5) 08/08/17 00:09 Urine Bacteria Rare (<OCC) 08/08/17 00:09 Urine HCG, Qual Negative (NEGATIVE) 08/09/17 04:40 - Hospital Course Hospital Course: 26 year old female, post robotic cholecystectomy, seen and examined. Denies acute pain or vomiting. cleared by the surgical team for discharge home today. discharge plan for today, advised to follow up in the office in 1 week. Discharge Exam - Head Exam Head Exam: ATRAUMATIC, NORMOCEPHALIC Discharge Plan - Discharge Medications Prescriptions: Docusate Sodium [Colace] 100 mg PO TID #30 capsule Levofloxacin [Levaquin] 500 mg PO DAILY #5 tablet oxyCODONE/Acetaminophen [Percocet 5/325 mg Tab] 1 ea PO Q6H PRN #20 tab PRN Reason: Pain, Severe (8-10) - Follow Up Plan Condition: FAIR Disposition: HOME/ ROUTINE Instructions: Levofloxacin (Systemic), Gallstones (DC), Docusate, Oxycodone and Acetaminophen, Acute Abdominal Pain (DC) Referrals: Breezy Rodriguez MD [Staff Provider] - Quinn Gooden MD [Staff Provider] -
== END 2017-08-10 13:15 | disposition home or self-care (01) | DRG 419 ==
LOC: C.ER 22:57 → C.3T 08-08 00:53
PROVIDERS: ADMIT Internal Medicine; ATTEND Internal Medicine
PROC: 8E0W4CZ Robotic Assisted Procedure of Trunk Region, Percutaneous Endoscopic Approach (ICD-10-PCS; 2017-08-09)
PROC: 0FT44ZZ Resection of Gallbladder, Percutaneous Endoscopic Approach (ICD-10-PCS; principal; 2017-08-09 14:15)
DX: K80.00 Calculus of gallbladder with acute cholecystitis without obstruction (principal)